=== PATIENT | male | born 1975 | race Caucasian/White ===

== ENCOUNTER 2025-07-06 18:45 | Emergency (ER) | payer BC ==
[2025-07-06 19:27] LABS: BASOPHILS ABSOLUTE AUTO 0.07 10^3/uL (0.00-0.10); BASOPHILS PERCENT AUTO 0.7 % (0.0-1.0); EOSINOPHILS ABSOLUTE AUTO 0.22 10^3/uL (0.10-0.30); EOSINOPHILS PERCENT AUTO 2.1 % (1.0-3.0); IMMATURE GRAN ABSOLUTE AUTO 0.02 10^3/uL (0.00-0.04); IMMATURE GRAN PERCENT AUTO 0.2 % (0.0-0.4); LYMPHOCYTES ABSOLUTE AUTO 2.78 10^3/uL (1.00-4.00); LYMPHOCYTES PERCENT AUTO 27.1 % (20.0-40.0); MEAN PLATELET VOLUME 9.8 fL (7.4-10.4); MONOCYTES ABSOLUTE AUTO 1.03 10^3/uL (0.10-0.80); MONOCYTES PERCENT AUTO 10.1 % (2.0-8.0); NEUTROPHILS ABSOLUTE AUTO 6.12 10^3/uL (2.50-7.00); NEUTROPHILS PERCENT AUTO 59.8 % (50.0-70.0); PLATELET COUNT,PLT 236 10^3/uL (150-400); RED BLOOD CELL COUNT 4.63 10^6/uL (4.50-6.00); RED CELL DISTRIBUTION WIDTH 12.1 % (11.5-14.5); WHITE BLOOD CELL COUNT,WBC 10.24 10^3/uL (5.00-10.00)
[2025-07-06 19:45] LABS: ALANINE AMINOTRANSFERASE,ALT 28.0 U/L (14-63); ASPARTATE AMNIOTRANSFERASE,AST 19.0 U/L (15-37); BILIRUBIN TOTAL 0.4 mg/dL (0.2-1.0); BLOOD UREA NITROGEN,BUN 17.0 mg/dL (7-18); CARBON DIOXIDE,CO2 28.5 mmol/L (21.0-32.0); CHLORIDE,CL 103.0 mmol/L (98-107); CREATININE 0.8 mg/dL (0.51-1.17); EST CRCL DRUG DOSING (CG) 118.96 mL/min; ESTIMATED GFR 108.0 mL/min (>=60); GLUCOSE RANDOM 121.0 mg/dL (70-140); POTASSIUM,K 3.6 mmol/L (3.5-5.1); PROTEIN TOTAL,TP 7.1 g/dL (6.4-8.2); SODIUM,NA 142.0 mmol/L (136-145)
[2025-07-06 22:01] VITALS: BP 119/69; PULSE 64
== END 2025-07-06 21:58 | disposition home or self-care (01) ==
LOC: KA.ED 18:45
DX: R25.1 Tremor, unspecified (principal); R61 Generalized hyperhidrosis; Z87.891 Personal history of nicotine dependence
CPT/HCPCS: 36415; 80053; 84484; 85025; 93010; 99284; A9270-GY